=== PATIENT | male | born 1990 | race Two or more races ===

== ENCOUNTER 2020-09-15 20:27 | Emergency (ER) | payer OTHER ==
[~2020-09-15] VITALS: Ht 180.3 cm; Wt 136.1 kg
--- NOTE | 2020-09-15 21:15 | NUR ---
DR MONAHAN at bedside for MSE.
[2020-09-15 21:16] LABS: *BILIRUBIN,URIN NEGATIVE (NEGATIVE); *CLARITY,URINE CLEAR (CLEAR); *COLOR,URINE YELLOW (YELLOW); *KETONES,URINE NEGATIVE (NEGATIVE); *UROBILINOGEN,URINE 0.2 E.U./dl (NORMAL); LEUKOCYTE ESTERASE ,URINE NEGATIVE (NEGATIVE); NITRITE, URINE NEGATIVE (NEGATIVE); PH,URINE 6.5 (5.0-8.0); UGLUCOSE NEGATIVE (NEGATIVE)
[2020-09-15 21:18] LABS: *BLOOD, URINE TRACE INTACT (NEGATIVE)
--- NOTE | 2020-09-15 21:30 | NUR ---
Pt sent down for CT.
--- NOTE | 2020-09-15 22:37 | NUR ---
US tech at bedside.
[2020-09-15 22:55] VITALS: BP 148/72
--- NOTE | 2020-09-15 23:05 | NUR ---
Patient discharged to home in stable condition. Written and verbal after care instructions given. Patient verbalizes understanding of instructions. Stressed follow up or return to ER for worsening s/s. Pt ambulated out of ER with steady gait. No acute distress noted.
[2020-09-16 00:06] LABS: BACTERIA,URINE NONE SEEN /HPF (NONE SEEN); RBC,URINE 0-3 /HPF (0-3); SQUAMOUS EPITHELIAL CELL,UR FEW /HPF (NONE SEEN); WBC,URINE 0-3 /HPF (0-3)
== END 2020-09-15 23:05 | disposition home or self-care (01) ==
LOC: ER 20:38
DX: R10.9 Unspecified abdominal pain (principal); R10.31 Right lower quadrant pain
CPT/HCPCS: A4663

== ENCOUNTER 2022-09-06 12:49 | Emergency (ER) | payer SELFPAY ==
[~2022-09-06] VITALS: Ht 180.3 cm; Wt 140.6 kg
--- NOTE | 2022-09-06 12:57 | NUR ---
Dr Miguel at the bedside for MSE.
[2022-09-06] MEDS ORDERED: CLOT15CR27 TP (13:18)
[2022-09-06 13:24] LABS: HEMATOCRIT 45.1 % (36.7-47.1); MEAN CORPUSCULAR HEMOGLOBIN 27.6 uug (23.8-33.4); MEAN CORPUSCULAR VOLUME 81.5 fL (73.0-96.2); PLATELET COUNT (AUTO) 233 K/uL (152-348)
[2022-09-06 13:27] LABS: *BILIRUBIN,URIN NEGATIVE (NEGATIVE); *BLOOD, URINE NEGATIVE (NEGATIVE); *CLARITY,URINE CLEAR (CLEAR); *COLOR,URINE YELLOW (YELLOW); *KETONES,URINE NEGATIVE (NEGATIVE); LEUKOCYTE ESTERASE ,URINE NEGATIVE (NEGATIVE); NITRITE, URINE NEGATIVE (NEGATIVE); UGLUCOSE 2+ (NEGATIVE)
[2022-09-06 13:31] LABS: CREATININE 0.8 mg/dL (0.6-1.3); POTASSIUM 3.8 mmol/L (3.5-5.1)
[2022-09-06 13:36] LABS: BILIRUBIN,TOTAL 0.5 mg/dL (0.2-1.0); TOTAL PROTEIN, SERUM 8.1 g/dL (6.4-8.2)
[2022-09-06] MEDS ORDERED: METF-440 PO (13:38)
--- NOTE | 2022-09-06 13:56 | NUR ---
Gave pt RX and d/c instructions, pt verbalized understanding.
== END 2022-09-06 14:02 | disposition home or self-care (01) ==
LOC: ER 12:49
DX: N48.1 Balanitis (principal); E11.9 Type 2 diabetes mellitus without complications; Z88.0 Allergy status to penicillin
CPT/HCPCS: 36415; 85025; A4663